=== PATIENT | male | born 1940 | race Asian ===

== ENCOUNTER 2016-08-31 17:52 | Emergency (ER) | payer OTHER ==
[~2016-08-31] VITALS: Ht 170.2 cm; Wt 85.9 kg
[2016-08-31 19:21] LABS: BASOPHIL % 0.1 % (0-2); PLATELET COUNT 261 x10^3mcL (130-400); RED CELL DISTRIBUTION WIDTH 12.9 % (11.5-14.5)
[2016-08-31 19:28] LABS: CALCIUM 9.2 mg/dL (8.5-10.1); CARBON DIOXIDE 26.8 mmol/L (21-32); CHLORIDE SERUM 100 mmol/L (98-107); CREATININE SERUM 1.2 mg/dL (0.7-1.3); GLUCOSE SERUM 170 mg/dL (74-106); SODIUM SERUM 137 mmol/L (136-145)
[2016-08-31 19:42] LABS: ALKALINE PHOSPHATASE 65 U/L (46-116); ALT/SGPT 23 U/L (16-63); AMYLASE 79 U/L (25-115); AST/SGOT 15 U/L (15-37); BILIRUBIN TOTAL 0.7 mg/dL (0.20-1.00); CHOLESTEROL 156 mg/dL (<200); HDL CHOLESTEROL 52 mg/dL (40-60); LIPASE 148 IU/L (73-393); MAGNESIUM 1.7 mg/dL (1.8-2.4); TOTAL PROTEIN, SERUM 7.9 g/dL (6.4-8.2)
[2016-08-31 21:19] VITALS: BP 154/74
== END 2016-08-31 21:19 | disposition home or self-care (01) ==
LOC: ED 17:52
PROVIDERS: Emergency Medicine
DX: R42 Dizziness and giddiness (principal); E11.9 Type 2 diabetes mellitus without complications; I10 Essential (primary) hypertension; I45.10 Unspecified right bundle-branch block; K42.9 Umbilical hernia without obstruction or gangrene
CPT/HCPCS: 83880; J2550; J7030; J8597; Q0092

== ENCOUNTER 2017-05-03 10:00 | Emergency (ER) | payer OTHER ==
[~2017-05-03] VITALS: Ht 170.2 cm; Wt 86.2 kg
[2017-05-03 10:01] VITALS: Ht 170.2 cm; Wt 86.2 kg
[2017-05-03 11:09] LABS: PLATELET COUNT 246 x10^3mcL (130-400); RED CELL DISTRIBUTION WIDTH 13.2 % (11.5-14.5)
[2017-05-03 11:10] LABS: BASOPHIL % 0 % (0-2)
[2017-05-03 11:17] LABS: CARBON DIOXIDE 25.9 mmol/L (21-32); CHLORIDE SERUM 99 mmol/L (98-107); CREATININE SERUM 1.3 mg/dL (0.7-1.3); GLUCOSE SERUM 241 mg/dL (74-106); POTASSIUM SERUM 4.1 mmol/L (3.5-5.1); SODIUM SERUM 135 mmol/L (136-145)
[2017-05-03 11:22] LABS: ALBUMIN 3.8 g/dL (3.4-5.0); ALKALINE PHOSPHATASE 66 U/L (46-116); ALT/SGPT 41 U/L (16-63); AST/SGOT 23 U/L (15-37); BILIRUBIN TOTAL 0.56 mg/dL (0.20-1.00); CHOLESTEROL 156 mg/dL (<200); HDL CHOLESTEROL 50 mg/dL (40-60); MAGNESIUM 1.7 mg/dL (1.8-2.4); TOTAL PROTEIN, SERUM 7.5 g/dL (6.4-8.2)
[2017-05-03 12:26] LABS: microscopic required? NO
[2017-05-03 12:29] LABS: urine erythrocyte NEGATIVE (NEGATIVE)
[2017-05-03 13:35] VITALS: BP 135/75
== END 2017-05-03 13:35 | disposition home or self-care (01) ==
LOC: ED 10:00
PROVIDERS: Emergency Medicine
DX: R42 Dizziness and giddiness (principal); G44.89 Other headache syndrome; I12.9 Hypertensive chronic kidney disease with stage 1 through stage 4 chronic kidney disease, or unspecified chronic kidney disease; E11.22 Type 2 diabetes mellitus with diabetic chronic kidney disease; N18.3 Chronic kidney disease, stage 3 (moderate); K45.8 Other specified abdominal hernia without obstruction or gangrene
CPT/HCPCS: 83880

== ENCOUNTER 2018-05-06 10:57 | Emergency (ER) | payer OTHER | END 2018-05-06 15:21 | disposition home or self-care (01) | LOC: ED 10:57 ==

== ENCOUNTER 2018-05-07 09:07 | Emergency (ER) | payer OTHER ==
[~2018-05-07] VITALS: Ht 170.2 cm; Wt 91.2 kg
[2018-05-07 09:13] VITALS: Ht 170.2 cm; Wt 91.2 kg
[2018-05-07 10:42] VITALS: BP 152/113
== END 2018-05-07 11:20 | disposition home or self-care (01) ==
LOC: ED 09:07
DX: I10 Essential (primary) hypertension (principal); E11.9 Type 2 diabetes mellitus without complications